=== PATIENT | female | born 1945 | race African-American/Black ===

== ENCOUNTER 2024-10-12 14:31 | Inpatient (IN) | payer OTHER ==
[~2024-10-12] VITALS: Ht 157.5 cm; Wt 132.4 kg
[2024-10-12] MEDS: PIPERACILLIN/TAZO 3.375G/50ML 50 ML IV ONE (14:45)
[2024-10-12] MEDS: VANCOMYCIN 1G PREMIX 200 ML IV ONE (14:45)
[2024-10-12] MEDS: SODIUM CHLORIDE 0.9% (SEPSIS BOLUS) IV ONE (15:03)
[2024-10-12 15:44] LABS: CHLORIDE 115 mEq/L (98-107); POTASSIUM 3.3 mEq/L (3.5-5.1); SODIUM 148 mEq/L (136-145)
[2024-10-12 15:45] LABS: CALCIUM 7.1 mg/dL (8.7-10.4); CARBON DIOXIDE 28 mEq/L (21-32)
[2024-10-12 15:50] LABS: CREATININE 0.6 mg/dL (0.6-1.0); GLUCOSE 79 mg/dL (70-105); UREA NITROGEN BLOOD 11 mg/dL (9-23)
[2024-10-12 15:51] LABS: TROPONIN I HIGH SENSITIVITY 4 ng/L (3.0-34)
[2024-10-12 15:52] LABS: ALANINE AMINOTRANSFERASE 17 IU/L (10-49); ALBUMIN 2.5 g/dL (3.2-4.8); ASPARTATE AMINOTRANSFERASE 35 IU/L (<34); BILIRUBIN DIRECT 0.3 mg/dL (<=3.0); BILIRUBIN TOTAL 0.5 mg/dL (0.1-1.0); CREATINE KINASE 22 IU/L (34-145)
[2024-10-12 15:53] LABS: PROTEIN TOTAL 4.4 g/dL (6.0-8.3)
[2024-10-12 17:49] LABS: BASOPHILS % 0.1 % (0.0-2.0); EOSINOPHILS % 0.5 % (0.0-5.0); HEMATOCRIT. 39.8 % (36.0-48.0); HEMOGLOBIN. 13.1 g/dL (12.0-16.0); LYMPHOCYTES % 4.3 % (20.0-50.0); MEAN CORPUSCULAR HEMOGLOBIN 31.2 pg (28.0-32.0); MEAN CORPUSCULAR HGB CONC 32.9 g/dL (31.0-37.0); MEAN CORPUSCULAR VOLUME 94.7 fL (81.0-99.0); MEAN PLATELET VOLUME 10.2 fl (7.4-10.4); MONOCYTES % 0.9 % (2.0-8.0); NEUTROPHILS % 94.2 % (40.0-76.0); PLATELET 88 x1000/uL (130-400); RED BLOOD CELL COUNT 4.21 mill/uL (4.2-5.4); RED CELL DISTRIBUTION WIDTH 13.4 % (11.6-14.6); WHITE BLOOD COUNT 5.7 x1000/uL (4.5-11.0)
[2024-10-12 17:53] LABS: DIFFERENTIAL COMMENT 1
[2024-10-12 17:57] LABS: INR 1.2; PROTHROMBIN TIME 13.5 sec (9.6-11.0)
[2024-10-12] MEDS: SODIUM CHLORIDE 0.9% 1,000 ML IV ONE ×2 (18:31)
[2024-10-12 20:10] LABS: BG BASE EXCESS -1.2 mmol/L (-2.0-3.0); BG CARBOXYHEMOGLOBIN 1.1 % (0.5-1.5); BG DEOXYHEMOGLOBIN 5.6 % (0.0-5.0); BG FRACTION INSPIRED OXYGEN 28; BG HCO3 ACT 27.2 mmol/L (21.0-28.0); BG METHEMOGLOBIN 0.3 % (0.5-1.5); BG OXYGEN SATURATION 94.3 % (94.0-98.0); BG PCO2 63.2 mmHg (32.0-45.0); BG PH 7.252 (7.350-7.450); BG PO2 76.5 mmHg (83.0-108.0); BG SAMPLE SITE LEFT RADIAL; BG TOTAL HEMOGLOBIN 12.9 g/dL (12.0-16.0); BG VENT MODE NASAL CANNULA
[2024-10-12 20:21] VITALS: RESP 24
[2024-10-12] MEDS ORDERED: IOHEXOL-350 100 ML BOTTLE ONE (23:28)
[2024-10-13] VITALS (15 sets, daily range): BP systolic 89–138; BP diastolic 34–85; PULSE 70–96; RESP 18–26; TEMP 36.55848–37.33632; O2SAT 92–100
[2024-10-13] MEDS ORDERED: DEXTROSE 50% WATER 50ML SYRINGE IV PRN (00:30)
[2024-10-13] MEDS ORDERED: MAGNESIUM/ALUMINUM HYDROXIDE/SIMETHICONE 30ML UDC PO PRN (00:30)
[2024-10-13] MEDS ORDERED: ACETAMINOPHEN 325MG TABLET PO PRN ×2 (00:30)
[2024-10-13] MEDS ORDERED: ONDANSETRON HCL 4MG/2ML INJ IV PRN (00:30)
[2024-10-13] MEDS ORDERED: GUAIFENESIN 200MG/10ML SUGAR FREE UDC PO PRN (00:30)
[2024-10-13] MEDS ORDERED: IPRATROPIUM/ALBUTEROL 0.5-3(2.5)MG/3ML NEB HHN PRN (00:30)
[2024-10-13] MEDS ORDERED: CLONIDINE 0.1MG TABLET PO PRN (00:30)
[2024-10-13] MEDS ORDERED: NA PHOS,M-B/NA PHOS,DI-BA ENEMA 118ML PR PRN (00:30)
[2024-10-13] MEDS ORDERED: DOCUSATE SODIUM 100MG CAPSULE PO PRN (00:30)
[2024-10-13] MEDS: POTASSIUM CHLORIDE 20MEQ TABLET SR PO NR ×2 (01:43→09:23)
[2024-10-13] MEDS: SODIUM CHLORIDE 0.45% 1,000 ML IV SCH (01:43)
[2024-10-13] MEDS: PANTOPRAZOLE SODIUM 40 MG/VIAL IV SCH (01:43)
[2024-10-13] MEDS: CEFTRIAXONE 1GM/50ML 50 ML IV SCH (04:09)
[2024-10-13] MEDS: APIXABAN 5 MG TABLET PO SCH ×2 (04:09→09:23)
[2024-10-13] MEDS ORDERED: SODIUM CHLORIDE 0.9% 250 ML IV NR (06:00)
[2024-10-13] MEDS: GABAPENTIN 100MG CAPSULE PO SCH (06:10)
[2024-10-13 06:16] LABS: CLARITY URINE TURBID (CLEAR); COLOR URINE DARK YELLOW (YELLOW); GLUCOSE URINE NEGATIVE (NEGATIVE); KETONES URINE NEGATIVE (NEGATIVE); LEUKOCYTE ESTERASE URINE 2+ (NEGATIVE); NITRITE URINE POSITIVE (NEGATIVE); OCCULT BLOOD URINE 3+ (NEGATIVE); PH URINE 5.5 (4.5-8.0); PROTEIN URINE 2+ (NEGATIVE); SPECIFIC GRAVITY URINE 1.072 (1.005-1.030)
[2024-10-13 06:51] LABS: *AMPHETAMINES SCREEN URINE NEGATIVE (NEGATIVE); *BARBITURATES SCREEN URINE NEGATIVE (NEGATIVE); *BENZODIAZEPINES SCREEN URINE NEGATIVE (NEGATIVE); *COCAINE SCREEN URINE NEGATIVE (NEGATIVE); CANNABINOID URINE SCREEN NEGATIVE (NEGATIVE); ECSTASY MDMA SCREEN URINE NEGATIVE (NEGATIVE); METHADONE URINE SCREEN NEGATIVE (NEGATIVE); OPIATES URINE SCREEN NEGATIVE (NEGATIVE); PHENCYCLIDINE URINE SCREEN NEGATIVE (NEGATIVE)
[2024-10-13] MEDS ORDERED: PRADAXA (06:55)
[2024-10-13] MEDS ORDERED: PARO-41 MT (06:55)
[2024-10-13] MEDS ORDERED: SIMV-43 MT (06:55)
[2024-10-13] MEDS ORDERED: OMEP20CA14 MT (06:55)
[2024-10-13] MEDS ORDERED: ALLO100T MT (06:55)
[2024-10-13] MEDS ORDERED: LOSA25TA26 MT (06:55)
[2024-10-13] MEDS ORDERED: GABAPENTIN (06:55)
[2024-10-13 07:04] LABS: HEPATITIS B SURFACE ANTIGEN NEGATIVE (Negative)
[2024-10-13 07:25] LABS: HEPATITIS C AB NON REACTIVE (Neg) (Negative)
[2024-10-13 07:51] LABS: TROPONIN I HIGH SENSITIVITY 40 ng/L (3.0-34)
[2024-10-13] MEDS: BLOOD SUGAR DIAGNOSTIC STRIP TEST SCH (08:10)
[2024-10-13 08:22] LABS: BG BASE EXCESS 0.2 mmol/L (-2.0-3.0); BG DEOXYHEMOGLOBIN 0.9 % (0.0-5.0); BG FRACTION INSPIRED OXYGEN 36; BG HCO3 ACT 30.9 mmol/L (21.0-28.0); BG METHEMOGLOBIN 0.3 % (0.5-1.5); BG OXYGEN SATURATION 99.1 % (94.0-98.0); BG OXYHEMOGLOBIN 97.8 % (94.0-98.0); BG PCO2 86.4 mmHg (32.0-45.0); BG PH 7.172 (7.350-7.450); BG PO2 157.3 mmHg (83.0-108.0); BG SAMPLE SITE LEFT RADIAL; BG TOTAL HEMOGLOBIN 12.8 g/dL (12.0-16.0); BG VENT MODE NASAL CANNULA
[2024-10-13 08:25] LABS: BACTERIA URINE 3+; RBC URINE TNTC /hpf (0-2); SQUAMOUS EPITHELIAL CELL URINE 1+ /lpf (RARE/1+); WBC URINE 50-100 /hpf (0-2)
[2024-10-13] MEDS: LOSARTAN 25 MG TABLET PO SCH (09:00)
[2024-10-13] MEDS ORDERED: APIXABAN 5 MG TABLET PO SCH (09:00)
[2024-10-13] MEDS: ASPIRIN 81MG EC TABLET PO SCH (09:23)
[2024-10-13] MEDS: ALLOPURINOL 100 MG TABLET PO SCH (09:32)
[2024-10-13 17:59] LABS: TROPONIN I HIGH SENSITIVITY 20 ng/L (3.0-34)
[2024-10-13] MEDS: LORATADINE 10MG TABLET PO SCH (21:29)
[2024-10-13] MEDS: FLUTICASONE PROPIONATE 50MCG/SPRAY BOTTLE BOTHNSTRLS SCH (21:32)
[2024-10-13] MEDS: FAMOTIDINE 20MG/2ML VIAL IV SCH (21:32)
[2024-10-13 22:15] LABS: TROPONIN I HIGH SENSITIVITY 19 ng/L (3.0-34)
[2024-10-14] VITALS (20 sets, daily range): BP systolic 73–152; BP diastolic 39–95; PULSE 79–108; RESP 17–25; TEMP 36.78072–37.94748; O2SAT 95–100
[2024-10-14 03:18] LABS: TROPONIN I HIGH SENSITIVITY 22 ng/L (3.0-34)
[2024-10-14 06:25] LABS: CLARITY URINE CLEAR (CLEAR); COLOR URINE YELLOW (YELLOW); GLUCOSE URINE NEGATIVE (NEGATIVE); KETONES URINE NEGATIVE (NEGATIVE); LEUKOCYTE ESTERASE URINE 1+ (NEGATIVE); NITRITE URINE NEGATIVE (NEGATIVE); OCCULT BLOOD URINE 3+ (NEGATIVE); PROTEIN URINE 1+ (NEGATIVE); SPECIFIC GRAVITY URINE 1.016 (1.005-1.030); UROBILINOGEN URINE 0.2 E.U./dL (0.2-1.0)
[2024-10-14 07:12] LABS: BASOPHILS % 0.2 % (0.0-2.0); EOSINOPHILS % 1.3 % (0.0-5.0); HEMATOCRIT. 36.6 % (36.0-48.0); HEMOGLOBIN. 11.8 g/dL (12.0-16.0); LYMPHOCYTES % 9.3 % (20.0-50.0); MEAN CORPUSCULAR HEMOGLOBIN 31.1 pg (28.0-32.0); MEAN CORPUSCULAR HGB CONC 32.3 g/dL (31.0-37.0); MEAN CORPUSCULAR VOLUME 96.2 fL (81.0-99.0); MONOCYTES % 6.6 % (2.0-8.0); NEUTROPHILS % 82.6 % (40.0-76.0); RED BLOOD CELL COUNT 3.81 mill/uL (4.2-5.4); RED CELL DISTRIBUTION WIDTH 13.6 % (11.6-14.6); WHITE BLOOD COUNT 11.9 x1000/uL (4.5-11.0)
[2024-10-14 07:19] LABS: CALCIUM 9.6 mg/dL (8.7-10.4); CARBON DIOXIDE 28 mEq/L (21-32); CHLORIDE 105 mEq/L (98-107); SODIUM 137 mEq/L (136-145)
[2024-10-14 07:24] LABS: CREATININE 1.2 mg/dL (0.6-1.0); GLUCOSE 98 mg/dL (70-105)
[2024-10-14 07:25] LABS: UREA NITROGEN BLOOD 18 mg/dL (9-23)
[2024-10-14 07:26] LABS: CHOLESTEROL 93 mg/dL (<200); HDL CHOLESTEROL 34 mg/dL (>65); LDL CHOLESTEROL 35 mg/dL (5-100)
[2024-10-14 07:27] LABS: PHOSPHORUS 3.3 mg/dL (2.5-4.9)
[2024-10-14 07:28] LABS: POTASSIUM 5.8 mEq/L (3.5-5.1)
[2024-10-14 07:30] LABS: TROPONIN I HIGH SENSITIVITY 20 ng/L (3.0-34)
[2024-10-14 07:59] LABS: DIFFERENTIAL COMMENT 1
[2024-10-14 08:00] LABS: INR 1.2; PROTHROMBIN TIME 12.8 sec (9.6-11.0)
[2024-10-14 08:22] LABS: TRIGLYCERIDE 80 mg/dL (0-150)
[2024-10-14] MEDS ORDERED: SODIUM POLYSTYRENE SULFONATE 15 G/60 ML BOT PO ONE (08:30)
[2024-10-14 08:33] LABS: BG BASE EXCESS -2.1 mmol/L (-2.0-3.0); BG DEOXYHEMOGLOBIN 2.7 % (0.0-5.0); BG FRACTION INSPIRED OXYGEN 28; BG HCO3 ACT 27.9 mmol/L (21.0-28.0); BG METHEMOGLOBIN 0.1 % (0.5-1.5); BG OXYGEN SATURATION 97.3 % (94.0-98.0); BG OXYHEMOGLOBIN 96.2 % (94.0-98.0); BG PCO2 76.2 mmHg (32.0-45.0); BG PH 7.182 (7.350-7.450); BG PO2 97.5 mmHg (83.0-108.0); BG SAMPLE SITE LEFT BRACHIAL; BG TOTAL HEMOGLOBIN 12.8 g/dL (12.0-16.0); BG VENT MODE NASAL CANNULA
[2024-10-14] MEDS: SODIUM ZIRCONIUM CYCLOSILICATE 10GM/PACKET PO NR (09:13)
[2024-10-14 09:14] LABS: SQUAMOUS EPITHELIAL CELL URINE 1+ /lpf (RARE/1+)
[2024-10-14 09:18] LABS: BACTERIA URINE TRACE; RBC URINE 25-50 /hpf (0-2)
[2024-10-14] MEDS: SODIUM CHLORIDE 0.9% 1,000 ML IV ONE (09:30)
[2024-10-14] MEDS: MAGNESIUM 4 G PREMIX 100 ML IV NR (12:59)
[2024-10-14] MEDS: AZITHROMYCIN 500 MG TABLET PO SCH (18:39)
[2024-10-14] MEDS ORDERED: GABA-529 MT (21:41)
[2024-10-14] MEDS ORDERED: ASPI-1497 MT (21:51)
[2024-10-14] MEDS ORDERED: CHOL200010 PO (21:51)
[2024-10-14] MEDS ORDERED: ALEN70TA79 MT (21:51)
[2024-10-14] MEDS ORDERED: CICL6.1H2 INH (21:51)
[2024-10-14] MEDS ORDERED: DABI150C MT (21:51)
[2024-10-15] VITALS (26 sets, daily range): BP systolic 81–130; BP diastolic 40–91; PULSE 78–121; RESP 16–29; TEMP 36.78072–37.83636; O2SAT 94–100
[2024-10-15 10:08] LABS: BASOPHILS % 0.2 % (0.0-2.0); EOSINOPHILS % 2.6 % (0.0-5.0); HEMATOCRIT. 33.9 % (36.0-48.0); HEMOGLOBIN. 11.1 g/dL (12.0-16.0); LYMPHOCYTES % 10.1 % (20.0-50.0); MEAN CORPUSCULAR HEMOGLOBIN 31.3 pg (28.0-32.0); MEAN CORPUSCULAR HGB CONC 32.8 g/dL (31.0-37.0); MEAN CORPUSCULAR VOLUME 95.6 fL (81.0-99.0); MEAN PLATELET VOLUME 11.2 fl (7.4-10.4); NEUTROPHILS % 78.1 % (40.0-76.0); PLATELET 84 x1000/uL (130-400); RED BLOOD CELL COUNT 3.55 mill/uL (4.2-5.4); RED CELL DISTRIBUTION WIDTH 13.4 % (11.6-14.6); WHITE BLOOD COUNT 7.1 x1000/uL (4.5-11.0)
[2024-10-15 10:20] LABS: CHLORIDE 106 mEq/L (98-107); POTASSIUM 5.4 mEq/L (3.5-5.1); SODIUM 139 mEq/L (136-145)
[2024-10-15 10:21] LABS: CALCIUM 10.2 mg/dL (8.7-10.4); CARBON DIOXIDE 29 mEq/L (21-32)
[2024-10-15 10:26] LABS: CREATININE 0.9 mg/dL (0.6-1.0); GLUCOSE 117 mg/dL (70-105); UREA NITROGEN BLOOD 18 mg/dL (9-23)
[2024-10-15 11:03] LABS: BG BASE EXCESS 2.2 mmol/L (-2.0-3.0); BG CARBOXYHEMOGLOBIN 1.2 % (0.5-1.5); BG DEOXYHEMOGLOBIN 1.1 % (0.0-5.0); BG FRACTION INSPIRED OXYGEN 40; BG HCO3 ACT 32.4 mmol/L (21.0-28.0); BG OXYGEN SATURATION 98.9 % (94.0-98.0); BG OXYHEMOGLOBIN 97.7 % (94.0-98.0); BG PCO2 80.7 mmHg (32.0-45.0); BG PH 7.222 (7.350-7.450); BG PO2 135.7 mmHg (83.0-108.0); BG SAMPLE SITE LEFT RADIAL; BG TOTAL HEMOGLOBIN 13.9 g/dL (12.0-16.0); BG VENT MODE MASK - BIPAP
[2024-10-15] MEDS: SODIUM ZIRCONIUM CYCLOSILICATE 10GM/PACKET PO NR (14:03)
[2024-10-15 18:30] LABS: BG BASE EXCESS 3.2 mmol/L (-2.0-3.0); BG CARBOXYHEMOGLOBIN 1.4 % (0.5-1.5); BG DEOXYHEMOGLOBIN 9.2 % (0.0-5.0); BG FRACTION INSPIRED OXYGEN 21; BG HCO3 ACT 29.8 mmol/L (21.0-28.0); BG METHEMOGLOBIN 0.3 % (0.5-1.5); BG OXYGEN SATURATION 90.6 % (94.0-98.0); BG OXYHEMOGLOBIN 89.1 % (94.0-98.0); BG PCO2 54.5 mmHg (32.0-45.0); BG PH 7.356 (7.350-7.450); BG PO2 52.7 mmHg (83.0-108.0); BG SAMPLE SITE LEFT RADIAL; BG TOTAL HEMOGLOBIN 12.2 g/dL (12.0-16.0); BG VENT MODE MASK - BIPAP
[2024-10-16] VITALS (14 sets, daily range): BP systolic 104–136; BP diastolic 46–88; PULSE 78–101; RESP 16–29; TEMP 36.83628–37.16964; O2SAT 96–100
[2024-10-16 01:10] LABS: BG BASE EXCESS 5.4 mmol/L (-2.0-3.0); BG CARBOXYHEMOGLOBIN 1.2 % (0.5-1.5); BG DEOXYHEMOGLOBIN 2.2 % (0.0-5.0); BG FRACTION INSPIRED OXYGEN 30; BG METHEMOGLOBIN 0.3 % (0.5-1.5); BG OXYGEN SATURATION 97.8 % (94.0-98.0); BG OXYHEMOGLOBIN 96.3 % (94.0-98.0); BG PCO2 64.4 mmHg (32.0-45.0); BG PH 7.327 (7.350-7.450); BG PO2 103.7 mmHg (83.0-108.0); BG SAMPLE SITE LEFT RADIAL; BG TOTAL HEMOGLOBIN 11.6 g/dL (12.0-16.0); BG VENT MODE MASK - NRB
[2024-10-16] MEDS: CEFTRIAXONE 1GM/50ML 50 ML IV SCH (05:30)
[2024-10-16 12:52] LABS: BASOPHILS % 0.8 % (0.0-2.0); EOSINOPHILS % 7.2 % (0.0-5.0); HEMATOCRIT. 33.2 % (36.0-48.0); HEMOGLOBIN. 11.2 g/dL (12.0-16.0); MEAN CORPUSCULAR HEMOGLOBIN 31.5 pg (28.0-32.0); MEAN CORPUSCULAR HGB CONC 33.7 g/dL (31.0-37.0); MEAN CORPUSCULAR VOLUME 93.7 fL (81.0-99.0); MEAN PLATELET VOLUME 11.4 fl (7.4-10.4); MONOCYTES % 12.6 % (2.0-8.0); NEUTROPHILS % 59.4 % (40.0-76.0); PLATELET 91 x1000/uL (130-400); RED BLOOD CELL COUNT 3.54 mill/uL (4.2-5.4); RED CELL DISTRIBUTION WIDTH 13.1 % (11.6-14.6); WHITE BLOOD COUNT 4.1 x1000/uL (4.5-11.0)
[2024-10-16 12:58] LABS: CHLORIDE 105 mEq/L (98-107); POTASSIUM 4.4 mEq/L (3.5-5.1); SODIUM 140 mEq/L (136-145)
[2024-10-16 12:59] LABS: CALCIUM 11.1 mg/dL (8.7-10.4); CARBON DIOXIDE 33 mEq/L (21-32)
[2024-10-16 13:01] LABS: BG BASE EXCESS 6.2 mmol/L (-2.0-3.0); BG CARBOXYHEMOGLOBIN 1.3 % (0.5-1.5); BG DEOXYHEMOGLOBIN 3.1 % (0.0-5.0); BG FRACTION INSPIRED OXYGEN 24; BG HCO3 ACT 34.4 mmol/L (21.0-28.0); BG METHEMOGLOBIN 0.3 % (0.5-1.5); BG OXYGEN SATURATION 96.8 % (94.0-98.0); BG OXYHEMOGLOBIN 95.3 % (94.0-98.0); BG PCO2 69.3 mmHg (32.0-45.0); BG PH 7.314 (7.350-7.450); BG PO2 87.7 mmHg (83.0-108.0); BG SAMPLE SITE LEFT RADIAL; BG VENT MODE NASAL CANNULA
[2024-10-16 13:04] LABS: CREATININE 0.9 mg/dL (0.6-1.0); GLUCOSE 94 mg/dL (70-105); UREA NITROGEN BLOOD 15 mg/dL (9-23)
== END 2024-10-16 19:18 | disposition short-term general hospital (02) | DRG 871 ==
LOC: ER 14:31 → 5EST 20:25
PROVIDERS: ADMIT Internal Medicine; ATTEND Internal Medicine
PROC: 5A09357 Assistance with Respiratory Ventilation, Less than 24 Consecutive Hours, Continuous Positive Airway Pressure (ICD-10-PCS; principal; 2024-10-12)
PROC: 5A09357 Assistance with Respiratory Ventilation, Less than 24 Consecutive Hours, Continuous Positive Airway Pressure (ICD-10-PCS; 2024-10-13)
PROC: 5A09357 Assistance with Respiratory Ventilation, Less than 24 Consecutive Hours, Continuous Positive Airway Pressure (ICD-10-PCS; 2024-10-14)
PROC: 5A09357 Assistance with Respiratory Ventilation, Less than 24 Consecutive Hours, Continuous Positive Airway Pressure (ICD-10-PCS; 2024-10-15)
DX: A41.9 Sepsis, unspecified organism (principal); J96.21 Acute and chronic respiratory failure with hypoxia; J96.22 Acute and chronic respiratory failure with hypercapnia; E87.0 Hyperosmolality and hypernatremia; E66.2 Morbid (severe) obesity with alveolar hypoventilation; E87.29 Other acidosis; N39.0 Urinary tract infection, site not specified; R57.9 Shock, unspecified; I48.92 Unspecified atrial flutter; Z68.43 Body mass index [BMI] 50.0-59.9, adult; Z20.822 Contact with and (suspected) exposure to COVID-19; I25.10 Atherosclerotic heart disease of native coronary artery without angina pectoris; I10 Essential (primary) hypertension; D69.6 Thrombocytopenia, unspecified; K21.9 Gastro-esophageal reflux disease without esophagitis; E87.6 Hypokalemia; M10.9 Gout, unspecified; E83.42 Hypomagnesemia; J31.0 Chronic rhinitis; F17.210 Nicotine dependence, cigarettes, uncomplicated; Z96.643 Presence of artificial hip joint, bilateral; Z79.02 Long term (current) use of antithrombotics/antiplatelets; Z87.440 Personal history of urinary (tract) infections; Z79.82 Long term (current) use of aspirin; Z79.899 Other long term (current) drug therapy; Z85.3 Personal history of malignant neoplasm of breast; Z90.11 Acquired absence of right breast and nipple
CPT/HCPCS: 36415; 36600; 71045; 71275; 74176; 80048; 80061; 80076; 80305; 81003; 82375; 82550; 82805; 82962; 83036; 83605; 83735; 83880; 84100; 84145; 84484; 85025; 85576; 85651; 86705; 87070; 87340; 87426; 87804; 93005; 93306; 93970; 94660; 97163; 99291; 99292; J0696; J2470; J2543; J3370; J3475; J3490; J7030; Q9967